=== PATIENT | male | born 1950 | race Caucasian/White ===

== ENCOUNTER 2016-09-06 17:54 | Emergency (ER) ==
[2016-09-06 18:08] VITALS: BP 120/54; TEMP 98.5; BMI 26.9
[2016-09-06 18:56] LABS: BILIRUBIN,URINE Negative (NEGATIVE); KETONES,URINE Negative (NEGATIVE); LEUKOCYTE ESTERASE ,URINE Negative (NEGATIVE); NITRITE,URINE Negative (NEGATIVE); PH,URINE 5.5 (5-9); PROTEIN,URINE Negative (NEGATIVE); URINE, BLOOD Trace-lysed (NEGATIVE)
[2016-09-06 18:58] LABS: ADD URINE MICROSCOPIC YES
--- NOTE | 2016-09-06 19:04 | ED.PDOC ---
General ED Provider: Dr. MIKAEL YOUNG JR Chief Complaint: Back Pain Stated Complaint: Pain rt lateral flank area. Tender to touch. No known injury. onset 3 days ago. Denies urinary problems. Vomited x 1 this afternoon.[ End ] 3 DOES RECALL LAYING ON RAMP OF MOWER TWO TO THREE DAYS BEFORE PAIN BEGAN NO INJURY, DIS HURT WORSE TODAY AFTER EMESIS, UNSURE WHY VOMITED- NO FURTHER EPISODES, NO BLOOD IN URINE,TENDER OVER RIGHT TENTH RIB IN AREA FELT OT BE UNLIKLY TO SHOW ON XRAYS Time Seen by Physician: 18:15 Mode of Arrival: Walk-In Information Source: Patient Exam Limitations: No limitations Primary Care Provider: GOPAL AMBROSIO Nursing and Triage Documentation Reviewed and Agree: Yes Review of Systems - Review Of Systems Constitutional: Reports: No symptoms Eyes: Reports: No symptoms Ears, Nose, Mouth, Throat: Reports: No symptoms Respiratory: Reports: No symptoms Cardiac: Reports: No symptoms GI: Reports: No symptoms : Reports: Flank pain Musculoskeletal: Reports: Back pain Skin: Reports: No symptoms Neurological: Reports: No symptoms Endocrine: Reports: No symptoms Hematologic/Lymphatic: Reports: No symptoms All Other Systems: Other Past Medical History - Past Medical History Endocrine: Reports: None Cardiovascular: Reports: Hypertension Respiratory: Reports: None Hematological: Reports: None Gastrointestinal: Reports: GERD Genitourinary: Reports: Kidney stones Neuro/Psych: Reports: None Musculoskeletal: Reports: Arthritis Cancer: Reports: None - Surgical History General Surgical History: Reports: Unknown - Family History Family History: Reports: Unknown - Social History Smoking Status: Former smoker Hx Substance Use: No Alcohol Screening: None Physical Exam - Physical Exam Appearance: Well-appearing, Thin Pain Distress: Moderate Neck: Supple Respiratory: Airway patent Cardiovascular: RRR, Pulses normal, No rub, No murmur GI/: Soft, Nontender, No masses, Bowel sounds normal, No Organomegaly Musculoskeletal: Normal strength, ROM intact, No edema, No calf tenderness ( TENDER RITH cva BT ON CLOSE EXAM TENTH RIB IS TENDER TO PALPATIONWITHOUT CREPITANCE) Skin: Warm, Dry, Normal color Neurological: Sensation intact, Motor intact, Reflexes intact, Cranial nerves intact, Alert, Oriented Critical Care Note - Critical Care Note Total Time (mins): 0 Course - Course Orders, Labs, Meds: Lab Review 09/06/16 18:48 Urine Color Yellow Urine Clarity Clear Urine pH 5.5 Ur Specific [place] 1.015 Urine Protein Negative Urine Glucose (UA) Negative Urine Ketones Negative Urine Blood Trace-lysed Urine Nitrite Negative Urine Bilirubin Negative Urine Urobilinogen 0.2 Ur Leukocyte Esterase Negative Urine Microscopic RBC 0-2 Ur Squamous Epith Cells Not present Orders Category Date Time Status UA [URINALYSIS C & S IF INDICATED] Stat LAB 09/06/16 18:48 Completed Vital Signs: Temp Pulse Resp BP Pulse Ox 09/06/16 17:57 98.5 F 70 20 120/54 L 98 Departure - Departure Time of Disposition: 19:04 Disposition: HOME SELF-CARE Discharge Problem: Contusion of rib on right side Qualifiers: Encounter type: initial encounter Qualifier Code: (S20.211A) Contusion of right front wall of thorax, initial encounter Instructions: Contusion in Adults (ED) Condition: Good Pt referred to PMD for follow-up: Yes Additional Instructions: RIBS CAN HURT FOR WEEKS NSAIDS USUALLY FIRST LINE PAIN CONTROL MAY USE NORCO FOR PAIN NOT CONTROLLED BY NAPROSYN RECHECK PMD ONE WEEK IF PAIN NOT CONTROLLED RECHECK IF URINE BECOMES DARK OR BLOODY TRACE OF BLOOD IN URINE IS NOT INDICATIVE OF TROUBLE FROM A STONE NO EVIDENCE OF URINE INFECTION Prescriptions: Hydrocodone Bit/Acetaminophen [[place] 5-325] 1 - 2 tab PO Q6HR PRN #12 tablet PRN Reason: pain Naproxen [Naprosyn] 500 mg PO Q12HR PRN #30 tablet PRN Reason: PAIN Allergies/Adverse Reactions: Allergies No Known Allergies Allergy (Unverified 07/04/16 08:27) Home Medications: Ambulatory Orders Enalapril Maleate [Vasotec] 2.5 mg PO DAILY 07/04/16 Furosemide [Lasix] 40 mg PO DAILY 07/04/16 Meloxicam [Mobic] 15 mg PO DAILY 07/04/16 Potassium Citrate [Potassium Citrate ER] 5 meq PO DAILY 07/04/16 Ranitidine HCl [Zantac] 150 mg PO DAILY 07/04/16 Hydrocodone Bit/Acetaminophen [[place] 5-325] 1 - 2 tab PO Q6HR PRN #12 tablet Naproxen [Naprosyn] 500 mg PO Q12HR PRN #30 tablet 09/06/16
== END 2016-09-06 19:10 | disposition home or self-care (01) ==
LOC: ED 17:54
DX: S20.211A Contusion of right front wall of thorax, initial encounter (principal); R11.10 Vomiting, unspecified; I10 Essential (primary) hypertension; Z87.442 Personal history of urinary calculi; Z87.19 Personal history of other diseases of the digestive system; Z79.899 Other long term (current) drug therapy
CPT/HCPCS: 81001; 99283